=== PATIENT | female | born 1960 | race Caucasian/White ===

== ENCOUNTER 2017-03-10 15:12 | Emergency (ER) | payer OTHER ==
[2017-03-10 15:19] VITALS: BP 150/89; PULSE 88; RESP 18; TEMP 98; O2SAT 97
--- NOTE | 2017-03-10 15:52 | EDPHY ---
H & P Time Seen by Provider: 03/10/17 15:18 HPI/ROS: HPI Painful swelling by vagina. 56-year-old female by private vehicle. 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 She reports that yesterday she noticed a painful lump on the right side of her peridium adjacent to her labia majora. She reports that the swelling has increased to this area today and it has become more uncomfortable. No drainage. No fever. She denies any urinary complaints. Normal bowel movements. No other complaints. ROS: Constitutional: No fever, no chills. No weakness. Respiratory: No cough. No shortness of breath. Cardiac: No chest pain, no palpitations. Gastrointestinal: No abdominal pain, no vomiting, no diarrhea. Genitourinary: No hematuria. No dysuria or increased frequency with urination. As above. Musculoskeletal: No back pain. No neck pain. No myalgias or arthralgias. Skin: No rashes. Neurological: No headache. No focal weakness or altered sensation. Past medical history: Depression, hypertension, hypothyroid, orthopedic surgeries, hysterectomy. Social history: Nonsmoker. . No alcohol. Physical Exam: General Appearance: Alert, no distress. This patient is responding to questions appropriately and in full sentences. This patient appears well- hydrated and well-nourished. Eyes: Pupils equal and round no pallor or injection. No lid edema, erythema or injection. : Examination of the after vagina and perineum area significant for a tender swelling about the size of a nickel adjacent to and outside of the mid labia majora on the right. There is no surrounding erythema. There is no palpable fluctuance. Feels mildly indurated. No spreading edema. Neurological: Motor sensory function is grossly intact. Cranial nerves are normal. Gait is normal. Skin: Warm and dry, no rashes. Extremities are symmetrical. All joints range without pain or impingement. Psychiatric: No agitation. No depression. Database: EKG: Imaging: Procedures: Procedure: Abscess drainage. The patient's abscess was located on the outer right vaginal area. I obtained verbal consent from the patient to drain the abscess who was informed about the possibility of bleeding and pain. The abscess was incised with 11. Blade scalpel and a small amount of purulent drainage was expressed. I irrigated the wound and placed some packing. The patient tolerated the procedure well. The procedure was performed by myself. G stain and culture will be sent. Emergency department course: After above procedure, I discussed management of abscess status post incision and drainage. She has a cycling race coming up starting on Wednesday. I recommended against doing this raise for concerns that she would risk recurrence of her abscess and infection. She is in agreement. She feels comfortable going home. Vital signs were reviewed and are unremarkable. Follow- up and return to emergency department precautions reviewed. All of her questions were answered. She was discharged in good condition. Differential Diagnosis: The differential diagnosis on this patient includes but is not limited to perineal abscess, Bartholin's gland cyst, folliculitis. This represents a partial list of diagnoses considered. These considerations are based on history , physical exam, past history, reassessment and diagnostic testing. Smoking Status: Former smoker Constitutional: Initial Vital Signs Temperature (C) 36.6 C 03/10/17 15:17 Heart Rate 88 03/10/17 15:17 Respiratory Rate 18 03/10/17 15:17 Blood Pressure 150/89 H 03/10/17 15:17 O2 Sat (%) 97 03/10/17 15:17 O2 Delivery Mode Room Air Allergies/Adverse Reactions: levofloxacin [Levofloxacin] Allergy (Verified 04/26/16 07:55) HALLUCINATIONS Home Medications: Medication Instructions Recorded DULoxetine [Cymbalta] 20 mg PO TID 06/10/12 Estradiol [ESTRADIOL] 1.5 mg PO DAILY 06/10/12 LORazepam [Ativan 1 mg (RX)] 1 mg PO TID 06/10/12 Levothyroxine [Synthroid 125 mcg 125 mcg PO DAILY06 06/10/12 (RX)] Promethazine HCl [Phenergan 25mg 25 mg PO TID PRN 06/10/12 (RX)] SUMAtriptan [Imitrex 50 MG (RX)] 100 mg PO Q2H PRN 06/10/12 Testosterone 2 mg PO DAILY 06/10/12 Zolpidem Tartrate [Ambien 10 mg] 10 mg PO HS PRN 06/10/12 Diltiazem [Cardizem 60 MG (*)] 04/26/16 Losartan Potassium [Cozaar 25 mg 04/26/16 (*)] Departure - Departure Disposition: Home, Routine, Self-Care Clinical Impression: Perineal abscess, superficial Condition: Good Instructions: Abscess Follow-up (ED), Abscess (ED) Additional Instructions: Read and follow provided instructions. Follow-up with your primary care physician in 2-3 days for re-evaluation. I will provide you with to referrals if you do not have a primary care physician. Ibuprofen dosin mg every 6 hours with meals for the next 3 days only. Return to the emergency department for worsening pain, swelling, fever or other serious concerns. The packing can be removed tomorrow or the following day. Please excuse this patient from her bicycle ride and refund her appropriately. She is at increased risk of infection if she does a prolonged bicycle ride. Referrals: NONE *PRIMARY CARE P,. [Primary Care Provider] - As per Instructions Stand Alone Forms: Statement of Treatment
[2017-03-10] MEDS ORDERED: ONDANSETRON DISINTEGRATING 4 MG TAB PO ONE (16:02)
[2017-03-10] MEDS ORDERED: HYDROCODONE/APAP 10/325 TAB PO ONE (16:02)
== END 2017-03-10 16:13 | disposition home or self-care (01) ==
LOC: CED 15:12
PROC: 0U9M0ZZ Drainage of Vulva, Open Approach (ICD-10-PCS; principal; 2017-03-10)
DX: L02.215 Cutaneous abscess of perineum (principal); I10 Essential (primary) hypertension; Z87.891 Personal history of nicotine dependence

== ENCOUNTER → 2017-10-05 | Outpatient (CLI) | payer OTHER | LOC: FIMAGING 09:49 | PROVIDERS: ATTEND Obstetrics & Gynecology Gynecology | DX: Z12.31 Encounter for screening mammogram for malignant neoplasm of breast (principal) | CPT/HCPCS: G0202 ==

== ENCOUNTER → 2018-11-16 | Outpatient (CLI) | payer OTHER | LOC: FIMAGING 11:14 | PROVIDERS: ATTEND Family Medicine | DX: Z12.31 Encounter for screening mammogram for malignant neoplasm of breast (principal) ==

== ENCOUNTER → 2018-12-06 | Outpatient (CLI) | payer OTHER | LOC: FIMAGING 08:49 | PROVIDERS: ATTEND Family Medicine | DX: R92.8 Other abnormal and inconclusive findings on diagnostic imaging of breast (principal) ==

== ENCOUNTER 2019-03-01 12:13 | Observation (INO) | payer OTHER ==
--- NOTE | 2019-03-01 13:00 | EDPHY ---
H & P Stated Complaint: Intermittent diarrhea since colonoscopy 02/17, Mon/Tues, black stools, Time Seen by Provider: 03/01/19 12:16 HPI/ROS: 58-year-old female presents complaining epigastric pain and black stools for approximately 2 and half days. She has a history of hypertension, on hormone replacement therapy after hysterectomy and has a history of arthritis for which she takes ibuprofen. Approximately 20 years ago she had an upper GI bleed that was attributed to a vioxx pill stuck in her gastric lining. The patient had a colonoscopy on February 17 and feels like ever since that time her stomach has been uneasy and then for the last 2 and half days she has had diarrhea that was very black, as well as 1 episode of emesis with black flecks. Review of systems As per HPI General no fever no chills no weakness HEENT no eye pain no eye discharge. No eye redness, no sore throat Respiratory no cough, no shortness of breath Cardiac no chest pain, no peripheral edema GI positive abdominal pain, no diarrhea, no constipation, positive nausea, positive vomiting, positive dark stools no flank pain, no hematuria, no dysuria Musculoskeletal no myalgias, no joint pain Heme no easy bruising, no easy bleeding Endo no polyuria, no polydipsia Skin no rashes, no pruritus Neuro no syncope, no dizziness, no headaches Psych is no suicidal ideation, no homicidal ideation Source: Patient Exam Limitations: No limitations - Personal History Current Tetanus Diphtheria and Acellular Pertussis (TDAP): Yes Tetanus Vaccine Date: 2017 - Medical/Surgical History Hx Asthma: No Hx Chronic Respiratory Disease: No Hx Diabetes: No Hx Cardiac Disease: Yes Hx Renal Disease: No Hx Cirrhosis: No Hx Alcoholism: No Hx HIV/AIDS: No Hx Splenectomy or Spleen Trauma: No Other PMH: depression, htn, hypothyroid. hysterectomy and ortho surgeries - Family History Significant Family History: No pertinent family hx - Social History Smoking Status: Former smoker Alcohol Use: Rarely Drug Use: None - Physical Exam Exam: 58-year-old female alert and oriented in no acute distress, vital signs stable, afebrile HEENT atraumatic normocephalic, extraocular muscles intact, anicteric Oropharynx negative for erythema negative exudate, tolerating her own secretions Neck supple no meningismus Lungs clear to auscultation bilaterally Heart regular rate and rhythm without murmur rub or gallop Abdomen nondistended normoactive bowel sounds soft, mild epigastric tenderness, no guarding no rebound, no pulsatile mass Back no CVA tenderness, no step-offs, no spinal tenderness Rectal positive black stool, positive occult blood positive No evidence of hemorrhoids Extremities no cyanosis clubbing or edema Neuro alert and oriented, no focal deficits Constitutional: Initial Vital Signs Temperature (C) 36.9 C 03/01/19 12:23 Heart Rate 95 03/01/19 12:23 Respiratory Rate 16 03/01/19 12:23 Blood Pressure 141/99 H 03/01/19 12:23 O2 Sat (%) 98 03/01/19 12:23 O2 Delivery Mode Room Air Allergies/Adverse Reactions: Penicillins Allergy (Severe, Verified 03/01/19 12:21) vomiting and diarrhea levofloxacin [Levofloxacin] Allergy (Verified 03/01/19 12:20) HALLUCINATIONS Home Medications: Medication Instructions Recorded DULoxetine [Cymbalta] 20 mg PO TID 06/10/12 Estradiol [ESTRADIOL] 1.5 mg PO DAILY 06/10/12 LORazepam [Ativan 1 mg (RX)] 1 mg PO TID 06/10/12 Levothyroxine [Synthroid 125 mcg 125 mcg PO DAILY06 06/10/12 (RX)] SUMAtriptan [Imitrex 50 MG (RX)] 100 mg PO Q2H PRN 06/10/12 Testosterone 2 mg PO DAILY 06/10/12 Diltiazem [Cardizem 60 MG (*)] 04/26/16 Losartan Potassium [Cozaar 25 mg 04/26/16 (*)] Medical Decision Making ED Course/Re-evaluation: Patient seen and evaluated for dark stools and epigastric pain. IV established labs drawn CBC hemoglobin 11 Lactate 1.5 Basic metabolic panel within normal limits Positive fecal occult blood Patient given 1 L normal saline for tachycardia Patient also given Protonix 80 mg IVP Impression Upper gi bleed Plan Admit to [facility] Report given to Dr Horton, hospitalist at [facility]. Discussed with Dr Jossy Bruce who did colonoscopy on February 17. Differential Diagnosis: Differential diagnosis considered but not limited to Upper GI bleeding, lower GI bleeding, gastritis, diverticulosis, esophageal varices, gastric ulcer - Data Points Laboratory Results: 0503/01/19 03/01/19 13:17 13:01 13:01 APTT 28.9 SEC SEC (23.0-38.0) POC Sodium POC Potassium POC Chloride POC Total CO2 POC BUN POC Creatinine POC Glucose POC Lactic Acid Colby 1.5 mmol/L mmol/L (0.7-2.1) POC Calcium POC Total Bilirubin POC AST POC ALT POC Alk Phosphatase POC Total Protein POC Albumin Lipase 148 IU/L IU/L (23-300) 03/01/19 12:45 APTT POC Sodium 139 mEq/L mEq/L (135-145) POC Potassium 3.8 mEq/L mEq/L (3.3-5.0) POC Chloride 103.0 mEq/L mEq/L (97-110) POC Total CO2 26 mEq/L mEq/L (22-31) POC BUN 16 mg/dL mg/dL (7-23) POC Creatinine 0.8 mg/dL mg/dL (0.6-1.0) POC Glucose 106 mg/dL H mg/dL (70-100) POC Lactic Acid Colby POC Calcium 10.2 mg/dL mg/dL (8.5-10.4) POC Total Bilirubin 0.6 mg/dL mg/dL (0.1-1.4) POC AST 38 IU/L IU/L (14-46) POC ALT 32 IU/L IU/L (9-52) POC Alk Phosphatase 92 IU/L IU/L (38-126) POC Total Protein 7.2 g/dL g/dL (6.3-8.2) POC Albumin 4.0 g/dL g/dL (3.5-5.0) Lipase Medications Given: Discontinued Medications Sodium Chloride (Ns) 1,000 mls @ 0 mls/hr IV ONCE ONE PRN Reason: Wide Open Stop: 03/01/19 13:03 Last Admin: 03/01/19 13:19 Dose: 1,000 mls Pantoprazole Sodium (Protonix) 80 mg IVP EDNOW ONE Stop: 03/01/19 13:03 Last Admin: 03/01/19 13:20 Dose: 80 mg Point of Care Test Results: CBC CBC Collection Date 03/01/19 CBC Collection Time 12:40 WBC 7.86 RBC 3.53 HGB 11.3 HCT 31.9 PLT 382 Neut # 3.93 Neut 50.0 LYMPH # 3.09 LYMPH 39.3 MCV 90.4 Chemistry 03/01/19 12:45 POC Sodium 139 mEq/L mEq/L (135-145) POC Potassium 3.8 mEq/L mEq/L (3.3-5.0) POC Chloride 103.0 mEq/L mEq/L (97-110) POC Total CO2 26 mEq/L mEq/L (22-31) POC BUN 16 mg/dL mg/dL (7-23) POC Creatinine 0.8 mg/dL mg/dL (0.6-1.0) POC Glucose 106 mg/dL H mg/dL (70-100) POC Calcium 10.2 mg/dL mg/dL (8.5-10.4) POC Total Bilirubin 0.6 mg/dL mg/dL (0.1-1.4) POC AST 38 IU/L IU/L (14-46) POC ALT 32 IU/L IU/L (9-52) POC Alk Phosphatase 92 IU/L IU/L (38-126) POC Total Protein 7.2 g/dL g/dL (6.3-8.2) POC Albumin 4.0 g/dL g/dL (3.5-5.0) Blood Gas/Lactic Acid-Venous 03/01/19 13:17 POC Lactic Acid Colby 1.5 mmol/L mmol/L (0.7-2.1) Occult Blood Occult Blood Collection Date 03/01/19 Occult Blood Collection Time 13:15 Occult Blood Result Positive/Positive Departure - Departure Disposition: [facility] Inpatient Acute Clinical Impression: Upper gastrointestinal bleeding Condition: Good
[2019-03-01] MEDS ORDERED: NS 1,000 ML IV ONE (13:02)
[2019-03-01] MEDS ORDERED: PANTOPRAZOLE SODIUM 40 MG VIAL IVP ONE (13:02)
[2019-03-01] MEDS ORDERED: NS 100 ML BAG IV ONE (13:08)
[2019-03-01] MEDS ORDERED: oxyCODONE IR 5 MG TAB PO PRN (16:48)
[2019-03-01] MEDS ORDERED: PROMETHAZINE HCL 25 MG/ML INJ IVP PRN (16:48)
[2019-03-01] MEDS ORDERED: HYDROmorphONE/DILAUDID 1 MG/ML INJ IVP PRN (16:48)
[2019-03-01] MEDS ORDERED: ONDANSETRON DISINTEGRATING 4 MG TAB PO PRN (16:48)
[2019-03-01] MEDS ORDERED: ACETAMINOPHEN 325 MG TAB PO PRN (16:48)
[2019-03-01] MEDS ORDERED: ONDANSETRON 4 MG/2 ML VIAL IVP PRN (16:48)
--- NOTE | 2019-03-01 16:54 | PDGENHP ---
History and Physical - Chief Complaint dark stools - History of Present Illness 58 yo F with PMH of HTN, GERD, CAD and arthritis with chronic NSAID use presenting with c/o black stools and black speckled vomit in the past couple of days. Patient notes that she underwent screening colonoscopy by Dr. Bruce on and has felt generally poorly since then. She notes she has had bouts of dizziness and lightheadedness as well as epigastric pain. On Wednesday of this week she had an episode of vomiting with what appeared to be black flecks in the vomit. This was followed by a large volume watery stool that was also noted to be black. Yesterday she again had 3 episodes of black watery BMs and continued epigastric pain similar to her prior GERD sxs. She has been dizzy still, but not as bad as on Wednesday. She was seen in where a hemoccult was noted to be positive and was sent here for further evaluation. She otherwise denies issues including cp, sob, current n/v. History Information - Allergies/Home Medication List Allergies/Adverse Reactions: Penicillins Allergy (Severe, Verified 03/01/19 12:21) vomiting and diarrhea levofloxacin [Levofloxacin] Allergy (Verified 03/01/19 12:20) HALLUCINATIONS Home Medications: DULoxetine [Cymbalta] 20 mg PO TID 06/10/12 [Last Taken Unknown] Estradiol [ESTRADIOL] 1.5 mg PO DAILY 06/10/12 [Last Taken Unknown] LORazepam [Ativan 1 mg (RX)] 1 mg PO TID 06/10/12 [Last Taken Unknown] Levothyroxine [Synthroid 125 mcg (RX)] 125 mcg PO DAILY06 06/10/12 [Last Taken Unknown] SUMAtriptan [Imitrex 50 MG (RX)] 100 mg PO Q2H PRN 06/10/12 [Last Taken Unknown] Testosterone 2 mg PO DAILY 06/10/12 [Last Taken Unknown] Diltiazem [Cardizem 60 MG (*)] 04/26/16 [Last Taken Unknown] Losartan Potassium [Cozaar 25 mg (*)] 04/26/16 [Last Taken Unknown] I have personally reviewed and updated: family history, medical history, social history, surgical history - Past Medical History arthritis, coronary artery disease, GERD, hypertension, hyperlipidemia, migraines, psychiatric history (PTSD, anxiety, depression) Additional medical history: hypothyroid - Surgical History Reports: hysterectomy (BSOO) Additional surgical history: right TkA. knee surgery x 2 - Family History Positive for: non-pertinent - Social History Smoking Status: Former smoker Alcohol Use: Rarely Drug Use: None Additional social history: Review of Systems Review of Systems: ROS: 10pt was reviewed & negative except for what was stated in HPI & below Physical Exam Physical Exam: Temp Pulse Resp BP Pulse Ox 37.2 C 92 20 146/93 H 97 03/01/19 16:03 03/01/19 16:03 03/01/19 16:03 03/01/19 16:03 03/01/19 16:03 Constitutional: no apparent distress, appears nourished Eyes: PERRL, anicteric sclera Ears, Nose, Mouth, Throat: moist mucous membranes, hearing normal Cardiovascular: regular rate and rhythym, no murmur, rub, or gallop, No edema Respiratory: no respiratory distress, no rales or rhonchi Gastrointestinal: normoactive bowel sounds, soft, non-tender abdomen Genitourinary: no bladder tenderness Skin: warm, normal color Musculoskeletal: full muscle strength Neurologic: AAOx3 Psychiatric: interacting appropriately, not anxious, not encephalopathic Lab Data & Imaging Review APTT 28.9 SEC (23.0-38.0) 03/01/19 13:01 POC Sodium 139 mEq/L (135-145) 03/01/19 12:45 POC Potassium 3.8 mEq/L (3.3-5.0) 03/01/19 12:45 POC Chloride 103.0 mEq/L (97-110) 03/01/19 12:45 POC Total CO2 26 mEq/L (22-31) 03/01/19 12:45 POC BUN 16 mg/dL (7-23) 03/01/19 12:45 POC Creatinine 0.8 mg/dL (0.6-1.0) 03/01/19 12:45 POC Glucose 106 mg/dL (70-100) H 03/01/19 12:45 POC Lactic Acid Colby 1.5 mmol/L (0.7-2.1) 03/01/19 13:17 POC Calcium 10.2 mg/dL (8.5-10.4) 03/01/19 12:45 POC Total Bilirubin 0.6 mg/dL (0.1-1.4) 03/01/19 12:45 POC AST 38 IU/L (14-46) 03/01/19 12:45 POC ALT 32 IU/L (9-52) 03/01/19 12:45 POC Alk Phosphatase 92 IU/L (38-126) 03/01/19 12:45 POC Total Protein 7.2 g/dL (6.3-8.2) 03/01/19 12:45 POC Albumin 4.0 g/dL (3.5-5.0) 03/01/19 12:45 Lipase 148 IU/L (23-300) 03/01/19 13:01 Hct 11 Assessment & Plan Assessment: Upper gastrointestinal bleeding (Acute) 58 yo F with hx of GERD, arthritis and chronic NSAID use presenting with epigastric pain and upper GI bleed # UGIB: patient hemodynamically stable, [place] [facility] [place] 11 but will repeat here, GI consulted, will plan for EGD in am. Likely due to gastritis/PUD given hx of GERD and chronic nsaid use. Discussed with her that she will likely need to dc nsaids at least for some time. Given 80mg IV protonix in UC, continue IV q6 # GERD: as above # arthritis: associated chronic pain for which she takes 3-9 ibuprofen per day for long period of time, discussed that this will need to be dc'ed, will trial tramadol # CAD: non obstructive and followed by Dr. Garzon # HTN: will resume home meds when reconciled # hypothyroid: continue levothyroxine # observation status Patient new to my care. Old records reviewed and summarized as above. Care plan reviewed with UC MD and GI as above.
[2019-03-01 17:24] LABS: PLATELET COUNT 332 10^3/uL (150-400)
[2019-03-01] MEDS: NS 1,000 ML IV SCH ×2 (17:31→23:50)
[2019-03-01] MEDS: PANTOPRAZOLE SODIUM 40 MG VIAL IVP SCH ×2 (17:31→22:55)
[2019-03-01] MEDS ORDERED: SUMAtriptan 50 MG TAB PO PRN (23:31)
[2019-03-01] MEDS ORDERED: LORazepam 1 MG TAB PO SCH (23:45)
[2019-03-01] MEDS: DULoxetine 20 MG CAP PO SCH (23:50)
[2019-03-02] MEDS: LORazepam 0.5 MG TAB PO SCH ×3 (00:52→13:00)
[2019-03-02] MEDS: PANTOPRAZOLE SODIUM 40 MG VIAL IVP SCH ×2 (05:28→11:11)
[2019-03-02] MEDS: NS 1,000 ML IV SCH (05:28)
[2019-03-02 05:29] LABS: PLATELET COUNT 310 10^3/uL (150-400)
[2019-03-02] MEDS ORDERED: LEVOTHYROXINE 125 MCG TAB PO SCH (06:00)
[2019-03-02] MEDS: DULoxetine 20 MG CAP PO SCH ×2 (09:49→16:17)
--- NOTE | 2019-03-02 11:35 | HOSPPROG ---
Hospitalist Progress Note Assessment/Plan: # UGIB: takes 6-9 daily for arthritis. IV PPI, EGD today # GERD: as above # arthritis: associated chronic pain. Needs further eval from PCP # CAD: non obstructive and followed by Dr. Garzon # HTN: will resume home meds when reconciled # hypothyroid: continue levothyroxine # DC after EGD if clinically stable Subjective: epigastric pain, headache this morning Objective: Vital Signs Temp Pulse Resp BP Pulse Ox 36.6 C 82 16 130/90 H 97 03/02/19 11:28 03/02/19 11:28 03/02/19 11:28 03/02/19 11:28 03/02/19 11:28 Laboratory Results 03/02/19 04:46 03/02/19 04:46 03/01/19 03/02/19 03/03/19 05:59 05:59 05:59 Intake Total 1400 Output Total 1200 Balance 1400 -1200 - Time Spent With Patient Time Spent with Patient: greater than 35 minutes Time Spent with Patient: Greater than 35 minutes spent on this patients care, greater than 50% of time spent counseling, educating, and coordinating care regarding the above mentioned plan. - Physical Exam Constitutional: uncomfortable Eyes: PERRL, pale conjunctiva Ears, Nose, Mouth, Throat: moist mucous membranes Cardiovascular: regular rate and rhythym Respiratory: no respiratory distress Gastrointestinal: tenderness (epigastric), other Skin: warm Musculoskeletal: full muscle strength Neurologic: AAOx3, CN II-XII Intact Psychiatric: interacting appropriately ICD10 Worksheet Patient Problems: Problems Problem Status Onset Upper gastrointestinal bleeding Acute
[2019-03-02] MEDS ORDERED: LR 1,000 ML IV ONE (11:37)
[2019-03-02] MEDS ORDERED: MIDAZOLAM 2 MG/2 ML VIAL IVP ONE (12:00)
--- NOTE | 2019-03-02 12:01 | PDANEPAE ---
ANE Past Medical History - Pulmonary History Hx Oxygen in Use at Home: No Hx Sleep Apnea: Yes Sleep Apnea Screening Result - Last Documented: Positive - Endocrine History Hx Diabetes: No - Chronic Pain History Chronic Pain: Yes ANE Review of Systems Review of Systems: ANE Patient History - Allergies Allergies/Adverse Reactions: Penicillins Allergy (Severe, Verified 03/01/19 12:21) vomiting and diarrhea levofloxacin [Levofloxacin] Allergy (Verified 03/01/19 12:20) HALLUCINATIONS - Home Medications Home Medications: DULoxetine [Cymbalta] 20 mg PO TID 06/10/12 [Last Taken 03/01/19] LORazepam [Ativan 1 mg (RX)] 0.5 mg PO TID@07,13,00 06/10/12 [Last Taken ] Levothyroxine [Synthroid 125 mcg (RX)] 125 mcg PO DAILY06 06/10/12 [Last Taken 03/01/19] SUMAtriptan [Imitrex 50 MG (RX)] 100 mg PO Q2H PRN 06/10/12 [Last Taken 03/01/19 ] Losartan Potassium [Cozaar 25 mg (*)] 25 mg PO HS 04/26/16 [Last Taken 03/01/19] Diltiazem HCl 120 mg PO BID 03/01/19 [Last Taken 03/01/19] LORazepam [Ativan (*)] 1 mg PO HS 03/01/19 [Last Taken 03/01/19] Testosterone/Estradiol Cmpd 1 suzie TP DAILY 03/01/19 [Last Taken 03/01/19] - NPO status NPO Since - Liquids (Date): 03/02/19 NPO Since - Liquids (Time): 00:00 NPO Since - Solids (Date): 03/02/19 NPO Since - Solids (Time): 00:00 - Smoking Hx Smoking Status: Former smoker - Alcohol Use Alcohol Use: Rarely ANE Labs/Vital Signs - Labs Result Diagrams: 03/02/19 04:46 03/02/19 04:46 - Vital Signs Blood Pressure: 130/90 Heart Rate: 82 Respiratory Rate: 16 O2 Sat (%): 97 Height: 160.02 cm Weight: 65.771 kg ANE Physical Exam - Airway Neck exam: FROM Mallampati Score: Class 2 Mouth exam: normal dental/mouth exam - Pulmonary Pulmonary: no respiratory distress - Cardiovascular Cardiovascular: regular rate and rhythym - ASA Status ASA Status: II ANE Anesthesia Plan Total IV Anesthesia: Yes
[2019-03-02] MEDS ORDERED: PROPOFOL/EMULSION 500 MG/50 ML BOTTLE IV ONE (12:29)
[2019-03-02] MEDS ORDERED: fentaNYL 100 MCG/2 ML INJ ONE (12:29)
[2019-03-02] MEDS ORDERED: LIDOCAINE 2% 100 MG/5 ML SYR ONE (12:30)
--- NOTE | 2019-03-02 12:33 | ASMTCMCOM ---
CM Note CM Note Notes: Reviewed chart, pt admitted for GI bleed. She has been taking 3-9 Ibuprofen/day. She lives at home with her , no therapies ordered. Anticipate she will dc home when medically stable, CM available for any changes. DC Plan: Independent Date Signed: 03/02/2019 12:32 PM Electronically Signed By:Mary Scales RN
[2019-03-02] MEDS ORDERED: ALBUTEROL 3 ML DEYVIAL IH PRN (13:01)
[2019-03-02] MEDS ORDERED: NALOXONE HCL 0.4 MG/ML INJ IVP PRN (13:01)
[2019-03-02] MEDS ORDERED: ONDANSETRON 4 MG/2 ML VIAL IVP PRN (13:01)
[2019-03-02] MEDS ORDERED: fentaNYL 100 MCG/2 ML INJ IVP PRN (13:01)
--- NOTE | 2019-03-02 13:01 | POSTANESTH ---
Post Anesthetic Evaluation Cardiovascular Status: Similar to Pre-Op Cond Respiratory Status: Similar to Pre-op Cond. Level of Consciousness/Mental Status: Can Participate in Eval, Mildly Sleepy, Arousable Pain Control: Adequate, Prn Tx Ordered Nausea/Vomiting Control: Adequate, Prn Tx Ordered Complications Possibly Related to Anesthesia: None Noted
--- NOTE | 2019-03-02 13:09 | GIREPORT ---
[facility] Surgical Services - Endoscopy Department Patient Name: JONNA SAPP Procedure Date: 03/02/2019 12:30 PM Patient Type: Inpatient Attending MD/ ER Physician: Moise Rapp MD Procedure: Upper GI endoscopy Indications: Acute post hemorrhagic anemia, Melena Providers: Moise Rapp MD Referring MD: Imani Silver Medicines: Propofol per Anesthesia = IV general with spont resps Complications: No immediate complications. Estimated blood loss: Minimal. Description of Procedure: After obtaining informed consent, the endoscope was passed under direct vision. Throughout the procedure, the patient's blood pressure, pulse, and oxygen saturations were monitored continuously. The Endoscope was intro duced through the mouth, and advanced to the third part of duodenum. The uppe r GI endoscopy was accomplished without difficulty. The patient tolerated th e procedure well. Findings: The examined esophagus was normal. One non-bleeding cratered gastric ulcer with no stigmata of bleeding wa s found in the gastric antrum. The lesion was 10 mm in largest dimension. Biopsies were taken with a cold forceps for histology. Estimated blood loss was minimal. Scattered inflammation characterized by erosions, erythema, friability and granularity was found on the greater curvature of the gastric body, at the incisura and in the gastric antrum. Biopsies were taken with a cold for ceps for histology. Estimated blood loss was minimal. Localized mild inflammation characterized by erythema and friability wa s found in the duodenal bulb. Biopsies for histology were taken with a co ld forceps for evaluation of celiac disease. Estimated blood loss was mini mal. The second portion of the duodenum and third portion of the duodenum we re normal. Biopsies for histology were taken with a cold forceps for evalu ation of celiac disease. Estimated blood loss was minimal. The exam was otherwise without abnormality. Estimated Blood Loss: Estimated blood loss was minimal. Post Op Diagnosis: - Normal esophagus. - Non-bleeding gastric ulcer with no stigmata of bleeding. Biopsied. - Gastritis. Biopsied. - Duodenitis. Biopsied. - Normal second portion of the duodenum and third portion of the duoden um. Biopsied. - The examination was otherwise normal. Recommendation: - Await pathology results. - My office will call with the pathology result with 5-7 days. If you h ave not heard from my office by 12-14, do not assume the pathology is marco l, please call [phone] to get the pathology results. - Use Protonix (pantoprazole) 40 mg PO daily for 2 months. Take 30-60 minutes before breakfast. 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 - Avoid Aspirin and NSAIDs if possible - Return patient to [facility] for possible discharge same day. - Resume regular diet. - Return to primary care physician as previously scheduled. - Repeat upper endoscopy in 3 months to check healing. - Return to primary care physician as previously scheduled. - Thank you for allowing me to help in your patient's care. Do not hesi madrigal to call with any questions. Attending Participation: I personally performed the entire procedure. Dionte Villanueva M.D Moise Rapp MD 03/02/2019 1:09:14 PM This report has been signed electronicallyMattyanniw MD Dionte Number of Addenda: 0 Note Initiated On: 03/02/2019 12:30 PM [email or web address]
--- NOTE | 2019-03-02 13:53 | GCON ---
[f rep st] CONSULTATION DATE OF CONSULTATION: 03/02/2019 REQUESTING PHYSICIAN: Dr. Horton REASON FOR CONSULTATION: Melena, decreased hemoglobin and hematocrit, long-term use of ibuprofen. HPI: I have been asked by Dr. Horton to see the patient in consultation with chief complaint of p resumed upper GI bleed with epigastric pain, melena and decreased hemoglobin and hematocrit. She is a pleasant 58-year-old female with past medical history significant for anxiety, hypertension, hypoth yroidism, who has PTSD, anxiety and depression. She takes approximately 600 mg of Motrin 3 times a d ay for arthritic pain. She underwent a colonoscopy approximately a week ago with my partner, Dr. Kristian hawkins. She did not really feel well after the colonoscopy, but her symptoms were more epigastric discomf ort as well as dizziness and lightheadedness. She had an episode of vomiting with a small amount of coffee-ground in it, and then a large melenic stool. She contacted her PCP's office, who asked her t o go to Urgent Care. She was noted to have an anemia and elevated BUN/creatinine ratio consistent wi th upper GI bleed, and she was admitted to the hospital. I am now called to help and evaluate for pr esumed upper GI bleed related to NSAIDs. PAST MEDICAL HISTORY: Hypothyroidism, hypertension, depression, anxiety, PTSD, hyperlipidemia, migra leonor, history of IBS. PAST SURGICAL HISTORY: Total hysterectomy, right knee TKA. MEDICATIONS: At home include loxapine 20 mg three times daily, estradiol 1.5 mg daily, Lorazepam 1 m g three times daily, Synthroid 125 mcg daily, Imitrex 50 mg p.r.n., testosterone 2 mg daily, Cardizem 60 mg daily, losartan 25 mg daily. In hospital she is written for Tylenol p.r.n., Cymbalta, Dilaudid, Synthroid, Ativan, Zofran, oxycodo ne, Protonix, Phenergan, Imitrex. ALLERGIES: Levaquin, levofloxacin and penicillin. Her reaction to levofloxacin is hallucinations, a nd the penicillin vomiting and diarrhea. SOCIAL HISTORY: She drinks approximately 2-3 times a month. She does not smoke tobacco; she quit wh en she was in her 20s. FAMILY HISTORY: No colon cancer, colon polyps to her knowledge. The family does have a history of I BS. REVIEW OF SYSTEMS: A complete review of systems was performed, and negative other than HPI. Pertine nt negatives include no chest pain, palpitations, diaphoresis. PHYSICAL EXAM: GENERAL: Well-developed, well-nourished female sitting in her bed. No acute distres s. VITAL SIGNS: Blood pressure is 130/90, pulse is 82, respirations are 16, she is 97% on room air, temperature 36.6. EYES: Anicteric. PERRL, EOMI. MOUTH: No lesions. Moist membranes. NECK: Hamilton pple. Full range of motion. No JVD. BACK: No spine tenderness. No CVA tenderness. LUNGS: Clear . CARDIAC: S1, S2. Regular rate and rhythm. No murmurs, rubs or gallops. ABDOMEN: Bowel sounds are normal in pitch and frequency. Abdomen is soft with no tenderness. No rebound or guarding. No hepatosplenomegaly. EXTREMITIES: No cyanosis, clubbing, or edema. NEUROLOGICAL: Alert and oriente d x3. Cranial nerves intact. Nonfocal. SKIN: No stigmata of advanced liver disease. No rashes. LABORATORY DATA: From today, sodium 138, potassium 3.6, chloride 107, bicarb 24, BUN 7, creatinine 0 .7, glucose 94, calcium 8.5. WBC 5.16, hemoglobin 8.7, hematocrit 25.0, platelet count 310. On admi ssion, hemoglobin was 9.7, hematocrit 27.9. On admission, BUN was 18, creatinine 0.7. LFTs from yes terday: AST 38, ALT 32, alkaline phosphatase 92, total protein 7.2, albumin 4.0, lipase 148, bilirub in 0.6. Colonoscopy performed February 17, 2019: Good prep. Exam to cecum. Two 2-4 mm polyps were noted in the ascending colon. Left-sided diverticulosis was noted as well as internal hemorrhoids. Pathology of the polyps was tubular adenoma and sessile serrated adenoma. She will be recommended to have a colon oscopy in 5 years. Historical lab data: In May 2017, she had a normal hemoglobin and hematocrit of 15.1 and 44.1. H ep C antibody was negative from August 2013. ASSESSMENT: 1. Melena. 2. Hematemesis, mild. 3. Long-term use of nonsteroidal anti-inflammatories. 4. Posthemorrhagic anemia. 5. Posttraumatic stress disorder, anxiety and depression. 6. Hypertension. 7. Hypothyroidism. RECOMMENDATIONS: 1. Proceed with urgent EGD for evaluation of NSAID induced ulceration. 2. Follow hemoglobin and hematocrit. I do not think she will need any blood transfusions. I suspec t she has stopped bleeding. 3. Stop NSAIDs and try to limit them in the future. If she will need long-term NSAID therapy, she w ill need GI prophylaxis. 4. Will likely need Protonix for at least 8 weeks to heal an NSAID associated ulcer. 5. Treatment of other medical problems as per hospitalist. Thank you for allowing me to participate in this patient's healthcare. Do not hesitate to call me wi th any questions. /[id number]/MODL
--- NOTE | 2019-03-02 14:39 | GDS ---
[f rep st] DISCHARGE SUMMARY DISCHARGE DIAGNOSES: 1. Upper gastrointestinal bleed. 2. Melena. 3. Arthritis. 4. Gastroesophageal reflux disease. 5. Coronary artery disease. 6. Hypertension. 7. Hypothyroidism. HISTORY OF PRESENT ILLNESS: 58-year-old female with osteoarthritis, nonobstructive CAD presents with black stools and black speckled vomit in the past couple days. She underwent screening colonoscopy by Dr. Bruce on 02/19/2019 and has felt poorly since then. She has felt dizzy and lightheaded over last couple days. She has been taking six to nine Advils a day for arthritis. Denies fevers, chil ls, or sweats. HOSPITAL COURSE BY PROBLEM: 1. Upper gastrointestinal bleed: EGD revealed gastritis/duodenitis, nonbleeding gastric ulcer. PPI for two months. Repeat EGD in three months. Pathology is pending. Advised not to use any NSAIDs. 2. GERD: Proton pump inhibitor. 3. Arthritis: Again advised Tylenol only. I recommend she follow up with her PCP, Dr. Silver, for chronic management. Would not recommend opioid at this time. This can be addictive and should try a lternative methods. 4. CAD: Nonobstructive, followed by Dr. Garzon. 5. Hypertension: Resume home medications. 6. Hypothyroidism: Levothyroxine. DISPOSITION: The patient is stable for discharge home. NEW MEDICATION: 1. Protonix. FOLLOWUP: 1. Repeat EGD in three months. 2. Biopsies pending. /[id number]/MODL
[2019-03-02 16:01] VITALS: BP 124/73
== END 2019-03-02 16:45 | disposition home or self-care (01) ==
LOC: CED 12:13 → CEDHOLD 14:10 → F3E 15:46
PROVIDERS: ADMIT Internal Medicine; ATTEND Internal Medicine
DX: K92.0 Hematemesis (principal); K92.1 Melena; D64.9 Anemia, unspecified; K29.90 Gastroduodenitis, unspecified, without bleeding; K25.9 Gastric ulcer, unspecified as acute or chronic, without hemorrhage or perforation; K21.9 Gastro-esophageal reflux disease without esophagitis; M19.91 Primary osteoarthritis, unspecified site; I25.10 Atherosclerotic heart disease of native coronary artery without angina pectoris; I10 Essential (primary) hypertension; E03.9 Hypothyroidism, unspecified; Z87.891 Personal history of nicotine dependence
CPT/HCPCS: 43239; 96361; 96374; 99285; G0378; 80053-ER; 83605-ER; 85025-QW-ER; J2001; J2250; J2704; J3010